=== PATIENT | female | born 1980 | race Caucasian/White ===

== ENCOUNTER 2016-10-08 20:04 | Emergency (ER) | payer OTHER ==
--- NOTE | ~2016-10-08 | CR127 ---
[facility] A Service of [facility] & [facility] RADIOLOGY TEXT RESULTS PATIENT: BRII ELLIS LOCATION: SED : 84 UNIT #: [id number] AGE: [address]: René Guillaume SEX: F ORDER DR: [id number] [address] [address] [id number] E MR#: [id number] Acc #: [id number] NAME: BRII ELLIS : 1980 SEX: F STUDY DATE/TIME: 10/08/2016 19:59 UNIT: SED ROOM: STUDY DESCRIPTION: CR Foot Complete Min 3 View Rt Attending Physician: René Guillaume P.A.-C. Ordering Physician: René Guillaume P.A.-C. Primary Care Physician: Alivia Juan MEDICAL IMAGING REPORT This report is preliminary unless electronic signature is present. EXAM Right foot 3 views 10/08/2016 19:59 HISTORY 36-year-old female with pain on the bottom of the foot radiating laterally after kicking a shop vacuum yesterday. COMPARISON None. FINDINGS The tarsal, metatarsal, and phalangeal elements are all anatomically normal in position and alignment. There are no articular defects. No fractures or radiopaque foreign bodies in the soft tissues are apparent. IMPRESSION Normal foot. Dictated by... Kim Das M.D. THIS IS AN ELECTRONICALLY VERIFIED REPORT Kim Das M.D. at 10/10/2016 2:09 PM TAWANNA/leonid TD: 10/09/2016 10:19 JOB #: [id number] MEDICAL IMAGING REPORT
[~2016-10-08 20:04] MED LIST: HEARTBURN RELIE75 M2
== END 2016-10-08 21:12 | disposition home or self-care (01) ==
LOC: SED 20:04
DX: S93.601A Unspecified sprain of right foot, initial encounter (principal); Z88.8 Allergy status to other drugs, medicaments and biological substances; Z87.891 Personal history of nicotine dependence; X58.XXXA Exposure to other specified factors, initial encounter; Y92.098 Other place in other non-institutional residence as the place of occurrence of the external cause
CPT/HCPCS: 29405; 73630; 99283